=== PATIENT | male | born 1970 | race Asian ===

== ENCOUNTER 2016-10-20 19:00 | Emergency (ER) | payer OTHER ==
[2016-10-20 19:24] VITALS: BP 134/68; PULSE 85; TEMP 97.9; BMI 24.9
--- NOTE | 2016-10-20 19:26 | PDOC ---
History of Present Illness - General Chief Complaint: Pain Stated Complaint: PAIN Time Seen by Provider: 10/20/16 19:24 History Source: Patient Exam Limitations: No Limitations Past History - Past Medical History Allergies/Adverse Reactions: Allergies Allergy/AdvReac Type Severity Reaction Status Date / Time No Known Allergies Allergy Verified 10/20/16 19:18 Home Medications: Ambulatory Orders NK [No Known Home Medication] 10/20/16 - Immunization History Immunization Up to Date: Yes - Psycho/Social/Smoking Cessation Hx Anxiety: No Suicidal Ideation: No Smoking Status: No Smoking History: Never smoked Number of Cigarettes Smoked Daily: 0 Hx Alcohol Use: No *Physical Exam - Vital Signs Last Vital Signs Temp Pulse Resp BP Pulse Ox 97.9 F 85 17 134/68 98 10/20/16 19:21 10/20/16 19:21 10/20/16 19:21 10/20/16 19:21 10/20/16 19:21 Progress Note - Progress Note Progress Note: 46 yo male presents to the ER c/o skin tag to left left axilla region. Pt states the skin tag has been there for years but is bothering him when it gets caught on his shirt. Pt denies any other complaints. *DC/Admit/Observation/Transfer Diagnosis at time of Disposition: Skin tag - Discharge Dispostion Disposition: HOME Condition at time of disposition: Good - Referrals Referrals: Jason Banks [Non Staff, Medical] - - Patient Instructions Printed Discharge Instructions: [place] Additional Instructions: Discharge Instructions: -Call Dr. Banks tomorrow to schedule an appointment
--- NOTE | 2016-10-20 20:20 | PDOC ---
History of Present Illness - General Chief Complaint: Pain Stated Complaint: PAIN Time Seen by Provider: 10/20/16 19:24 History Source: Patient Exam Limitations: No Limitations - History of Present Illness Initial Comments: CHIEF COMPLAINT: 46 y/o afebrile male with a growth on his left underarm. HISTORY OF PRESENT ILLNESS: The patient states he's had the growth under his left arm for the past 6 months. He states for the past few days it started to get stuck on his shirts and hurt. He denies f/c, redness/streaking and all other symptoms. Vital signs on arrival are within normal limits. REVIEW OF SYSTEMS: GENERAL/CONSTITUTIONAL: No fever/chills. No weakness. No weight change. HEAD, EYES, EARS, NOSE AND THROAT: No change in vision. No ear pain or discharge. No sore throat. MUSCULOSKELETAL: No joint or muscle swelling or pain. No neck or back pain. SKIN: +skin growth to left underarm. PHYSICAL EXAM: GENERAL: The patient is awake, alert, and fully oriented, in no acute distress. HEAD: Normal with no signs of trauma. EYES: Pupils equal, round and reactive to light, extraocular movements intact, sclera anicteric, conjunctiva clear. EXTREMITIES: Normal range of motion, no edema. NEUROLOGICAL: Normal speech, normal gait. PSYCH: Normal mood, normal affect. SKIN: Skin tag in left axilla. No surrounding erythema, edema or streaking Past History - Past Medical History Allergies/Adverse Reactions: Allergies Allergy/AdvReac Type Severity Reaction Status Date / Time No Known Allergies Allergy Verified 10/20/16 19:18 Home Medications: Ambulatory Orders NK [No Known Home Medication] 10/20/16 - Immunization History Immunization Up to Date: Yes - Psycho/Social/Smoking Cessation Hx Anxiety: No Suicidal Ideation: No Smoking Status: No Smoking History: Never smoked Number of Cigarettes Smoked Daily: 0 Hx Alcohol Use: No *Physical Exam - Vital Signs Last Vital Signs Temp Pulse Resp BP Pulse Ox 97.9 F 85 17 134/68 98 10/20/16 19:21 10/20/16 19:21 10/20/16 19:21 10/20/16 19:21 10/20/16 19:21 Medical Decision Making - Medical Decision Making A/P: 46 y/o male with skin tag to his left axilla. Referred him to Dr. Banks for possible removal. *DC/Admit/Observation/Transfer Diagnosis at time of Disposition: Skin tag - Discharge Dispostion Disposition: HOME Condition at time of disposition: Good - Referrals Referrals: Jason Banks [Non Staff, Medical] - - Patient Instructions Printed Discharge Instructions: [place] Additional Instructions: Discharge Instructions: -Call Dr. Banks tomorrow to schedule an appointment
== END 2016-10-20 20:42 | disposition home or self-care (01) ==
LOC: JER 19:00 → JERFT 19:00
DX: L91.8 Other hypertrophic disorders of the skin (principal)
CPT/HCPCS: 99281-25

== ENCOUNTER 2016-12-09 18:04 | Emergency (ER) | payer OTHER ==
[2016-12-09 18:16] VITALS: BP 130/81; BMI 24.9
[2016-12-09] MEDS ORDERED: IBUPROFEN 600 MG TABLET (FP) PO ONE ×2 (20:27→20:33)
[2016-12-09] MEDS ORDERED: SODIUM CHLORIDE 1,000 ML IV STA (20:40)
--- NOTE | 2016-12-09 20:45 | PDOC ---
History of Present Illness - General Chief Complaint: Cold Symptoms Stated Complaint: COLD SYMPTOMS Time Seen by Provider: 12/09/16 20:18 History Source: Patient Exam Limitations: No Limitations - History of Present Illness Initial Comments: CHIEF COMPLAINT: 46 y/o febrile male with no significant PMH c/o cough and fever x 2 weeks. HISTORY OF PRESENT ILLNESS: He states the cough has been persistent and dry. The fever has been intermittent but since yesterday constant, along with body aches and runny nose. He denies earache, sore throat, DELAROSA, n/v/d, CP, SOB, abd pain, back pain, hematuria, dysuria. He has been taking 325mg of tylenol twice a day for fever but it continues to come back. The patient did not receive the flu shot this year. Vital signs on arrival are notable for pulse of 119 secondary to temp of 100. REVIEW OF SYSTEMS: GENERAL/CONSTITUTIONAL: +fever. +body aches. No weakness. No weight change. HEAD, EYES, EARS, NOSE AND THROAT: No change in vision. No ear pain or discharge. No sore throat. +runny nose CARDIOVASCULAR: No chest pain or shortness of breath. RESPIRATORY: +dry cough. No wheezing, or hemoptysis. GASTROINTESTINAL: No abd pain, nausea, vomiting, diarrhea. GENITOURINARY: No dysuria, frequency, or change in urination. MUSCULOSKELETAL: No joint or muscle swelling or pain. No neck or back pain. SKIN: No rash or easy bruising. NEUROLOGIC: No headache, vertigo, loss of consciousness, or loss of sensation. PHYSICAL EXAM: GENERAL: The patient is awake, alert, and fully oriented, in no acute distress. He is non toxic but ill appearing. He has a persistent dry, hacking cough. HEAD: Normal with no signs of trauma. ENT: Pupils equal, round and reactive to light, extraocular movements intact, sclera anicteric, conjunctiva clear. Neck supple. Mucous membranes moist. LUNGS: Clear to auscultation bilaterally. Normal excursion. No respiratory distress or use of accessory muscles. CV: RRR, S1/S2, no MRG. Cap refill < 2 sec. ABDOMEN: Soft, non-distended, non-tender even to deep palpation, no hepatomegaly or splenomegaly, no masses. EXTREMITIES: Normal range of motion, no edema. NEUROLOGICAL: Normal speech, normal gait. CN II-XII grossly intact. PSYCH: Normal mood, normal affect. SKIN: Warm, dry, normal turgor, no rashes or lesions noted. Past History - Past Medical History Allergies/Adverse Reactions: Allergies Allergy/AdvReac Type Severity Reaction Status Date / Time No Known Allergies Allergy Verified 12/09/16 18:16 Home Medications: Ambulatory Orders Azithromycin [Zithromax 250mg Tablets -] 250 mg PO UTDICT #6 tab 12/09/16 Guaifenesin AC [Robitussin AC -] 5 ml PO TID #50 ml MDD 30 12/09/16 Other medical history: NONE - Immunization History Immunization Up to Date: Yes - Psycho/Social/Smoking Cessation Hx Anxiety: No Suicidal Ideation: No Smoking Status: No Smoking History: Never smoked Number of Cigarettes Smoked Daily: 0 Hx Alcohol Use: No Drug/Substance Use Hx: No Substance Use Type: None *Physical Exam - Vital Signs Last Vital Signs Temp Pulse Resp BP Pulse Ox 100.0 F H 119 H 20 130/81 97 12/09/16 18:14 12/09/16 18:14 12/09/16 18:14 12/09/16 18:14 12/09/16 18:14 ED Treatment Course - RADIOLOGY Radiology Studies Ordered: Category Date Time Status CHEST PA & LAT [RAD] Stat Radiology 12/09/16 20:27 Ordered - Medications Given in the ED: ED Medications Discontinued Medications Generic Name Dose Route Start Last Admin Trade Name Freq PRN Reason Stop Dose Admin Ibuprofen 600 mg 12/09/16 20:27 12/09/16 20:35 Motrin - PO 12/09/16 20:28 600 mg ONCE ONE Administration Medical Decision Making - Medical Decision Making A/P: 46 y/o febrile male with signs and symptoms of the flu. Plan is as follows: 1. INfluenza swab 2. PO motrin 3. CXR r/o pneumonia. Influenza A&B - negative The patient's vital signs have improved CXR IMPRESSION: (Wet read): Congested lung otero, worse on right side. Will treat for bronchitis and pneumonia. Will give first dose of azithro in the ER. Will send Rx for Zpack and Robitussin AC to his pharmacy. Instructed the patient to not to drive while taking the cough medicine as it can cause drowsiness. Instructed him to take 650mg of Tylenol every 4 hours for fever, drink plenty of fluids and f/u with his doctor in 2 weeks for repeat chest xray. Instructed him to return to the ER immediately with any worsening or concerning symptoms. The patient verbalizes understanding of all instructions, has no further questions and is awaiting discharge. *DC/Admit/Observation/Transfer Diagnosis at time of Disposition: Bronchitis Pneumonia Qualifiers: Pneumonia type: due to unspecified organism Laterality: right Lung location: unspecified part of lung Qualified Code(s): J18.9 - Pneumonia, unspecified organism - Discharge Dispostion Disposition: HOME Condition at time of disposition: Improved - Prescriptions Prescriptions: Guaifenesin AC [Robitussin AC -] 5 ml PO TID #50 ml MDD 30 Azithromycin [Zithromax 250mg Tablets -] 250 mg PO UTDICT #6 tab - Referrals Referrals: Teodoro Mercado MD [Staff Physician] - Call tomorrow - Patient Instructions Printed Discharge Instructions: DI for Acute Bronchitis, DI for Pneumonia -- Adult Additional Instructions: Discharge Instructions: -Take antibiotics as prescribed -Take cough medicine as prescribed; it may cause drowsiness so do not drive while taking -Take 650mg of Tylenol every 4 hours for fever -Drink plenty of fluids and get lots of rest -Follow up with your doctor in 2 weeks for repeat chest xray -Return to the ER with any worsening or concerning symptoms.
[2016-12-09] MEDS ORDERED: AZITHROMYCIN 250 MG TABLET (FP) ONE (22:22)
[2016-12-09 22:29] VITALS: PULSE 86; TEMP 98.7
[2016-12-09] MEDS ORDERED: AZITHROMYCIN 250 MG TABLET (FP) PO ONE (22:37)
== END 2016-12-09 22:41 | disposition home or self-care (01) ==
LOC: JERFT 18:04
DX: J18.9 Pneumonia, unspecified organism (principal); J20.9 Acute bronchitis, unspecified
CPT/HCPCS: 71020-TC; 87804; 99281-25

== ENCOUNTER 2016-12-28 21:36 | Emergency (ER) | payer OTHER ==
[2016-12-28 21:48] VITALS: BP 112/62; PULSE 89; TEMP 98.8; BMI 24.9
--- NOTE | 2016-12-28 22:11 | PDOC ---
History of Present Illness - General Chief Complaint: Respiratory Stated Complaint: FEVER Time Seen by Provider: 12/28/16 21:49 History Source: Patient - History of Present Illness Timing/Duration: reports: other Associated Symptoms: reports: cough, fever/chills. denies: chest pain/soreness , shortness of breath, wheezing Past History - Past Medical History Allergies/Adverse Reactions: Allergies Allergy/AdvReac Type Severity Reaction Status Date / Time No Known Allergies Allergy Verified 12/28/16 21:44 Home Medications: Ambulatory Orders Benzonatate [Tessalon Pearls -] 100 mg PO TID #21 capsule 12/28/16 Chlorphenir/Phenyleph/Aspirin [Louisa-[place] Plus Cold Tab Eff] 1 each PO ASDIR 12/28/16 - Immunization History Immunization Up to Date: Yes - Psycho/Social/Smoking Cessation Hx Anxiety: No Suicidal Ideation: No Smoking Status: No Smoking History: Never smoked Number of Cigarettes Smoked Daily: 0 Hx Alcohol Use: No Drug/Substance Use Hx: No Substance Use Type: None Review of Systems - Review of Systems Constitutional: Yes: Fever. No: Chills HEENTM: No: Ear Pain, Throat Pain Respiratory: Yes: Cough. No: Shortness of Breath, Wheezing, Hemoptysis Cardiac (ROS): No: Chest Pain *Physical Exam - Vital Signs Last Vital Signs Temp Pulse Resp BP Pulse Ox 98.8 F 89 18 112/62 97 12/28/16 21:46 12/28/16 21:46 12/28/16 21:46 12/28/16 21:46 12/28/16 21:46 - Physical Exam General Appearance: Yes: Appropriately Dressed. No: Apparent Distress HEENT: positive: Normal Voice Neck: positive: Supple. negative: Lymphadenopathy (R), Lymphadenopathy (L) Respiratory/Chest: positive: Lungs Clear, Normal Breath Sounds. negative: Respiratory Distress, Wheezing Cardiovascular: positive: Regular Rate, S1, S2 Integumentary: positive: Dry, Warm Neurologic: positive: Fully Oriented, Alert, Normal Mood/Affect Medical Decision Making - Medical Decision Making 12/28/16 22:09 6-year-old male, denies any past medical history, was seen in ED over 2 weeks ago for cough and fever and diagnosed with bronchitis/pneumonia, though chest x- ray was read as negative by radiology. States he was discharged w/ abx but despite completing course, continues to have cough, mostly non-productive at this time. States he might have had subjective fever yesterday, no chills, hemoptysis, shortness of breath or chest pain. No tobacco history. Patient well-appearing and stable with clear chest/lungs. No need for repeat x-ray today. Cough possibly viral. Will dc with Sonia Gonsales and encourage PMD follow-up 12/28/16 22:11 *DC/Admit/Observation/Transfer Diagnosis at time of Disposition: Cough - Discharge Dispostion Disposition: HOME Condition at time of disposition: Good - Prescriptions Prescriptions: Benzonatate [Tessalon Pearls -] 100 mg PO TID #21 capsule - Patient Instructions Printed Discharge Instructions: Cough Additional Instructions: Take medication as directed and follow-up with PMD if symptoms persist
== END 2016-12-28 22:12 | disposition home or self-care (01) ==
LOC: JERFT 21:36
DX: R05 Cough (principal)
CPT/HCPCS: 99281-25

== ENCOUNTER 2018-02-01 11:41 | Emergency (ER) | payer OTHER ==
[2018-02-01 11:54] VITALS: BP 129/84; PULSE 87; TEMP 98.7; BMI 24.9
--- NOTE | 2018-02-01 13:00 | PDOC ---
History of Present Illness - General Chief Complaint: Respiratory Stated Complaint: COUGH Time Seen by Provider: 02/01/18 12:17 History Source: Patient Exam Limitations: No Limitations - History of Present Illness Initial Comments: 02/01/18 13:00 This is a 47-year-old male without significant past medical history presents emergency Department with 9 days of coughing. Patient denies any fevers, chills , shortness of breath, chest pain. He reports his cough is dry and unproductive. Patient states his nephew was seen and evaluated here was given antibiotics for similar symptoms. Past History - Past Medical History Allergies/Adverse Reactions: Allergies Allergy/AdvReac Type Severity Reaction Status Date / Time No Known Allergies Allergy Verified 02/01/18 11:52 Home Medications: Ambulatory Orders Benzonatate [Tessalon Pearls -] 100 mg PO TID #21 capsule 12/28/16 Chlorphenir/Phenyleph/Aspirin [Louisa-[place] Plus Cold Tab Eff] 1 each PO ASDIR 12/28/16 COPD: No - Immunization History Immunization Up to Date: Yes - Suicide/Smoking/Psychosocial Hx Smoking Status: No Smoking History: Never smoked Number of Cigarettes Smoked Daily: 0 Information on smoking cessation initiated: No Hx Alcohol Use: No Drug/Substance Use Hx: No Substance Use Type: None Review of Systems - Review of Systems Able to Perform ROS?: Yes Is the patient limited Ukrainian proficient: No Constitutional: No: Symptoms Reported HEENTM: No: Symptoms Reported Respiratory: Yes: See HPI Cardiac (ROS): No: Symptoms Reported ABD/GI: No: Symptoms Reported : No: Symptoms Reported Musculoskeletal: No: Symptoms Reported Integumentary: No: Symptoms Reported Neurological: No: Symptoms reported *Physical Exam - Vital Signs Last Vital Signs Temp Pulse Resp BP Pulse Ox 98.7 F 87 18 129/84 100 02/01/18 11:52 02/01/18 11:52 02/01/18 11:52 02/01/18 11:52 02/01/18 11:52 - Physical Exam General Appearance: Yes: Appropriately Dressed. No: Apparent Distress HEENT: positive: TMs Normal, Pharynx Normal, Rhinorrhea (clear) Neck: positive: Trachea midline, Supple Respiratory/Chest: positive: Lungs Clear, Normal Breath Sounds. negative: Respiratory Distress, Accessory Muscle Use Cardiovascular: positive: Regular Rhythm, Regular Rate, S1, S2. negative: Murmur Neurologic: positive: Alert, Normal Response Medical Decision Making - Medical Decision Making 02/01/18 13:02 A/P: 47-year-old male with 9 days of dry unproductive cough and clear rhinorrhea Inflamed nasal turbinates bilaterally Cobblestoning noted in the posterior oropharynx Mucous noted in the posterior oropharynx Lungs clear to auscultation bilaterally Symptoms consistent with ALLERGIC rhinitis with irritable airways as a result of postnasal drip. Patient is a [place] is currently in Ram[place] and is not able to eat or drink during daylight hours. Patient was instructed on taking symptomatic treatment when he is able to eat and drink and encouraged to hydrate as much as possible when able to. Patient verbalizes understanding of discharge instructions. *DC/Admit/Observation/Transfer Diagnosis at time of Disposition: Irritable airways Allergic rhinitis Qualifiers: Allergic rhinitis trigger: unspecified Allergic rhinitis seasonality: seasonal Qualified Code(s): J30.2 - Other seasonal allergic rhinitis - Discharge Dispostion Disposition: HOME Condition at time of disposition: Stable Decision to Admit order: No - Referrals - Patient Instructions Additional Instructions: Rest, drink lots of fluids: Teas, water, soups Saltwater gargles. Consider humidifier in room at night Steamy showers/seem to face break up mucus Avoid contact with allergens, exposure to pollens, close windows on a windy day Lots of handwashing and good hygiene Continue [id number] medications for symptomatic relief- may use allergic eyedrops for itching Continue antihistamines daily until pollen season is over; Zyrtec, Claritin, Wandy during the daytime and Benadryl at nighttime as will make sleepy Tylenol or Motrin for fever and pain Followup with private physician in one to 2 days as needed Consider following up with an utility worker roller shop/grain shipper for skin testing and possible allergy shots Return to emergency department for worsened symptoms, fevers, dehydration - Post Discharge Activity
== END 2018-02-01 13:04 | disposition home or self-care (01) ==
LOC: JERFT 11:41
DX: J30.2 Other seasonal allergic rhinitis (principal); J06.9 Acute upper respiratory infection, unspecified
CPT/HCPCS: 99281-25

== ENCOUNTER 2021-08-17 15:30 | Emergency (ER) | payer OTHER ==
[2021-08-17 16:08] VITALS: BP 137/94; PULSE 94; TEMP 97.9; BMI 25.4
== END 2021-08-17 17:43 | disposition home or self-care (01) ==
LOC: JER 15:30 → JERFT 15:30
DX: R05.1 Acute cough (principal); R09.81 Nasal congestion
CPT/HCPCS: 87651; 87804; 99283-25; C9803; U0003; U0005

== ENCOUNTER 2022-12-26 19:28 | Emergency (ER) | payer OTHER ==
[2022-12-26 19:35] VITALS: BP 138/88; PULSE 95; RESP 18; TEMP 98.4; BMI 23.3
== END 2022-12-26 20:44 | disposition left against medical advice (07) ==
LOC: JERFT 19:28
DX: K59.00 Constipation, unspecified (principal)
CPT/HCPCS: 99281-25